=== PATIENT | female | born 1970 | race Caucasian/White ===

== ENCOUNTER 2024-01-25 09:03 | Emergency (ER) | payer SELFPAY ==
[2024-01-25 09:24] VITALS: BP 130/89; PULSE 97; RESP 16; TEMP 36.3; O2SAT 99
[2024-01-25 09:25] VITALS: BP 130/89; PULSE 97; RESP 16; TEMP 36.3; O2SAT 99
--- NOTE | 2024-01-25 09:38 | ED.FEMALEGU ---
HPI - Female Genitourinary General Chief complaint: Urogenital-Female Stated complaint: UTI Symptoms Time Seen by Provider: 01/25/24 09:45 Source: patient and RN notes reviewed Mode of arrival: ambulatory Limitations: no limitations History of Present Illness HPI Narrative: 53-year-old female presents with concern for nausea, abdominal discomfort, hematuria, mucousy urine, general malaise. She reports she started feeling urine frequency about 3 weeks ago but has been under stress and has not been taking care of herself. She denies fever, vomiting. MD elicited complaint: UTI Related Data Allergies Allergy/AdvReac Type Severity Reaction Status Date / Time Sulfa (Sulfonamide Allergy Unknown Unknown Verified 01/25/24 09:24 Antibiotics) Review of Systems Review of Systems: CONSTITUTIONAL: Reports malaise, chills. Denies fever. CARDIOVASCULAR: Denies chest pain, palpitations, or edema. RESPIRATORY: Denies cough or dyspnea. GASTROINTESTINAL: Denies abdominal pain, nausea, vomiting, diarrhea GENITOURINARY: Reports frequency, urgency, suprapubic discomfort, mucousy urine, hematuria. Denies flank pain SKIN: Denies rash or itching. MUSCULOSKELETAL: Denies back pain or myalgia. All systems reviewed & are unremarkable except as noted in HPI and below PMFSH Comments At time of signature, agree with nursing past medical, surgical, social and family history. There is no relevant family history pertinent to the presenting complaint Exam Narrative: GENERAL: Well-appearing, well-nourished, and in no acute distress. HEAD: Normocephalic. EYES: PERRLA, conjunctivae clear. NECK: Supple. No lymphadenopathy CHEST: Clear to auscultation. No respiratory distress. HEART: Regular rate and rhythm. ABDOMEN: Soft, nontender upon palpation, nondistended, normal active bowel sounds, no palpable or pulsatile masses, no guarding. No CVA tenderness SKIN: Warm, dry, no rash. NEURO: Alert and oriented x3. PSYCH: Normal mood and affect Course Course Emergency Course: Patient is aware of diagnosis, understands and agrees to treatment plan. Anticipatory guidance given. Patient agrees to follow-up as directed and is aware of reasons to seek care at the emergency department. Portions of this record may have been created with voice recognition software Level of Care: Express Care Visit Vital Signs Vital signs: Vital Signs Temperature 97.4 F L 01/25/24 09:24 Pulse Rate 97 01/25/24 09:24 Respiratory Rate 16 01/25/24 09:24 Blood Pressure 130/89 01/25/24 09:24 Pulse Oximetry 99 01/25/24 09:24 Oxygen Delivery Room Air 01/25/24 09:24 Temperature 97.4 F L 01/25/24 09:25 Pulse Rate 97 01/25/24 09:25 Respiratory Rate 16 01/25/24 09:25 Blood Pressure 130/89 01/25/24 09:25 Pulse Oximetry 99 01/25/24 09:25 Oxygen Delivery Room Air 01/25/24 09:25 Reviewed. MDM - Female Genitourinary MDM Narrative Medical decision making narrative: Exam findings and UA show no acute concerns or changes; patient is non-toxic appearing and is in no distress. Patient is appropriate for outpatient treatment and follow-up. Differential Diagnosis Differential diagnosis: Likely urinary tract infection and cystitis Critical Care Time Critical Care Time Critical Care Time: No Discharge Plan Discharge Clinical Impression: Urinary tract infection Patient Disposition: Home, Self-Care Condition: Stable Instructions: Antibiotic Form, Urinary Tract Infection in Women (ED) Additional Instructions: We will send a urine culture to the lab; if the culture identifies an organism that the prescribed antibiotic will not treat, you will receive a phone call from an urgent care staff member and an appropriate antibiotic will be prescribed. -Your symptoms should begin to improve within a day of starting antibiotics. But you should finish all the antibiotic pills you get. Otherwise your infection might come back. -Also
== END 2024-01-25 09:57 | disposition home or self-care (01) ==
PROVIDERS: Emergency Provider Nurse Practitioner; Referring Provider Emergency Medicine
DX: N39.0 Urinary tract infection, site not specified (principal); B96.20 Unspecified Escherichia coli [E. coli] as the cause of diseases classified elsewhere
CPT/HCPCS: 81003; 87077; 87086; 87088; 87186; 99213; G0463